=== PATIENT | female | born 1990 | race Caucasian/White ===

== ENCOUNTER 2018-10-01 14:49 | Inpatient (IN) | payer BC, OTHER ==
[~2018-10-01] VITALS: Ht 177.8 cm; Wt 80.0 kg
[2018-10-01] MEDS: LACTATED RINGERS 1,000 ML IV SCH (02:24)
[~2018-10-01 14:49] MED LIST: INDO75CA3 PO; MAGN400T7 PO; SULF1TAB24 PO; SUMA50TA4 PO; VITA1CAP PO
[2018-10-01] MEDS ORDERED: D5%-LACTATED RINGERS 1,000 ML IV SCH (14:56)
[2018-10-01] MEDS ORDERED: OXYTOCIN 30U/ 0.9% NaCL 500ML 500 ML IV ONE ×2 (14:56→22:16)
[2018-10-01] MEDS ORDERED: OXYTOCIN 30U/ 0.9% NaCL 500ML 500 ML IV PRN ×2 (14:56→22:16)
[2018-10-01] MEDS ORDERED: MISOPROSTOL 200 MCG TABLET PR PRN ×2 (15:00→22:30)
[2018-10-01] MEDS ORDERED: OXYcodone/APAP 10/325MG TABLET PO PRN ×3 (15:00→22:30)
[2018-10-01] MEDS ORDERED: IBUPROFEN 600 MG TABLET PO PRN ×2 (15:00→22:30)
[2018-10-01] MEDS ORDERED: METOCLOPRAMIDE 5 MG/ML, 2ML IVPush PRN (15:00)
[2018-10-01] MEDS ORDERED: RHOGAM FROM BLOOD BANK 1 NOTE EA IM/IV PRN ×2 (15:00→22:30)
[2018-10-01] MEDS ORDERED: OXYcodone/APAP 5/325MG TABLET PO PRN ×2 (15:00→22:30)
[2018-10-01] MEDS ORDERED: FENTANYL PF 100 MCG/2ML IVPush PRN (15:00)
[2018-10-01] MEDS ORDERED: SODIUM CHLORIDE FLUSH 10ML SYR IVF PRN (15:00)
[2018-10-01] MEDS ORDERED: SODIUM CITRATE/CITRIC ACID 30 ML UDC PO PRN ×2 (15:00→22:30)
[2018-10-01] MEDS ORDERED: morphine SULFATE 10 MG/ML, 1ML IVPush PRN (15:00)
[2018-10-01] MEDS ORDERED: ONDANSETRON 2MG/ML, 2ML IVPush PRN ×2 (15:00→22:30)
[2018-10-01 15:11] VITALS: BP 120/71
[2018-10-01 15:29] LABS: BASOPHILS # (AUTO) 0.03 x10^3/uL (0-0.1); BASOPHILS % (AUTO) 0 % (0-1); EOSINOPHILS # (AUTO) 0.06 x10^3/uL (0-0.4); EOSINOPHILS % (AUTO) 1 % (1-7); LYMPHOCYTES # (AUTO) 1.22 x10^3/uL (1-3.4); LYMPHOCYTES % (AUTO) 13 % (22-44); MD NO; MEAN CORPUSCULAR HEMOGLOBIN 26.2 pg (27.0-34.8); MEAN CORPUSCULAR VOLUME 79.3 fL (80-100); MEAN PLATELET VOLUME 12.1 fL (7.4-10.4); MONOCYTES # (AUTO) 0.56 x10^3/uL (0.2-0.8); MONOCYTES % (AUTO) 6 % (2-9); NEUTROPHILS # (AUTO) 7.18 x10^3/uL (1.8-6.8); NEUTROPHILS % (AUTO) 79 % (42-75); PLATELET COUNT 146 x10^3/uL (130-400); RED CELL DISTRIBUTION WIDTH 15.5 % (9.6-15.2)
[2018-10-01] MEDS ORDERED: PLEASE ENTER HEIGHT AND WEIGHT MC SCH (15:30)
[2018-10-01] MEDS ORDERED: MISOPROSTOL 200 MCG TABLET ONE ×3 (15:44→23:07)
[2018-10-01] MEDS ORDERED: OXYTOCIN 30U/ 0.9% NaCL 500ML 500 ML ONE (15:44)
[2018-10-01] MEDS: MISOPROSTOL 200 MCG TABLET VG SCH ×2 (18:50→23:16)
[2018-10-01] MEDS ORDERED: ALUMINUM/MAG/SIMETHICONE 30 ML UDC PO PRN (22:30)
[2018-10-01] MEDS ORDERED: ZOLPIDEM 10MG TABLET PO PRN (22:30)
[2018-10-01] MEDS ORDERED: ACETAMINOPHEN 325 MG TABLET PO PRN ×2 (22:30)
[2018-10-01] MEDS ORDERED: CALCIUM CARBONATE 500 MG TAB.CHEW PO PRN (22:30)
[2018-10-01 23:22] LABS: BASOPHILS # (AUTO) 0.03 x10^3/uL (0-0.1); BASOPHILS % (AUTO) 0 % (0-1); EOSINOPHILS # (AUTO) 0.12 x10^3/uL (0-0.4); EOSINOPHILS % (AUTO) 1 % (1-7); LYMPHOCYTES # (AUTO) 1.97 x10^3/uL (1-3.4); LYMPHOCYTES % (AUTO) 20 % (22-44); MD NO; MEAN CORPUSCULAR HEMOGLOBIN 26.6 pg (27.0-34.8); MEAN CORPUSCULAR HGB CONC 33.3 g/dL (32.4-35.8); MEAN PLATELET VOLUME 11.7 fL (7.4-10.4); MONOCYTES % (AUTO) 5 % (2-9); NEUTROPHILS # (AUTO) 7.09 x10^3/uL (1.8-6.8); NEUTROPHILS % (AUTO) 73 % (42-75); PLATELET COUNT 147 x10^3/uL (130-400); RED BLOOD COUNT 4.85 x10^6/uL (3.82-5.3); RED CELL DISTRIBUTION WIDTH 15.5 % (9.6-15.2)
[2018-10-01 23:54] LABS: HEMOGLOBIN A1C 5.2 % (4.2-6.3)
[2018-10-02 00:01] LABS: AMPHETAMINE SCREEN, URINE Negative (Negative); BARBITURATE SCREEN, URINE Negative (Negative); BENZODIAZEPINE SCREEN, URINE Negative (Negative); CANNABINOID SCREEN, URINE Negative (Negative); COCAINE SCREEN, URINE Negative (Negative); METHADONE SCREEN, URINE Negative (Negative); OPIATE SCREEN, URINE Negative (Negative)
[2018-10-02] MEDS ORDERED: FENTANYL PF 100 MCG/2ML ONE (02:21)
[2018-10-02] MEDS ORDERED: MISOPROSTOL 200 MCG TABLET VG SCH (03:00)
[2018-10-02] MEDS ORDERED: FENTANYL/BUPIV./NS/PF 250 ML EPIDCONT SCH (03:02)
[2018-10-02] MEDS: LACTATED RINGERS 1,000 ML IV SCH ×2 (03:45→07:16)
[2018-10-02] MEDS ORDERED: BUPIVACAINE 0.25% ONE (03:52)
[2018-10-02] MEDS ORDERED: MISOPROSTOL 200 MCG TABLET ONE (05:39)
[2018-10-02] MEDS: MISOPROSTOL 200 MCG TABLET PO SCH ×2 (05:50→05:57)
== END 2018-10-02 13:27 | disposition home or self-care (01) | DRG 779 ==
LOC: LDIP 14:49
PROVIDERS: ADMIT Obstetrics & Gynecology; ATTEND Obstetrics & Gynecology
PROC: 10E0XZZ Delivery of Products of Conception, External Approach (ICD-10-PCS; principal; 2018-10-02)
PROC: 3E0R3BZ Introduction of Anesthetic Agent into Spinal Canal, Percutaneous Approach (ICD-10-PCS; 2018-10-02)
PROC: 00HU33Z Insertion of Infusion Device into Spinal Canal, Percutaneous Approach (ICD-10-PCS; 2018-10-02)
PROC: 3E033VJ Introduction of Other Hormone into Peripheral Vein, Percutaneous Approach (ICD-10-PCS; 2018-10-02)
DX: O02.1 Missed abortion (principal); Z82.49 Family history of ischemic heart disease and other diseases of the circulatory system; Z82.3 Family history of stroke; Z80.41 Family history of malignant neoplasm of ovary; Z3A.17 17 weeks gestation of pregnancy; O43.192 Other malformation of placenta, second trimester; O69.1XX0 Labor and delivery complicated by cord around neck, with compression, not applicable or unspecified
CPT/HCPCS: 36415; 85610; 85613; 85670; 85730; 85732; 86146; 86147; J2790; 80074; 80307; 81241; 83036; 84443; 85025; 85300; 85301; 85460; 85598; 86592; 86644; 86645; 86694; 86695; 86696; 86747; 86762; 86777; 86778; 86850; 86900; 87040; 87070; 87075; 87147; 87205; 87252; 88300; 88305; G0378; J3010; J3490; J7120

== ENCOUNTER 2019-10-06 09:53 | Outpatient (CLI) | payer OTHER ==
[~2019-10-06] VITALS: Ht 177.8 cm; Wt 86.8 kg
[~2019-10-06 09:53] MED LIST changes: -MAGN400T7 PO; +MAGN400T9 PO
[2019-10-06 10:28] VITALS: BP 112/71
[2019-10-06 11:11] LABS: MICROSCOPIC INDICATED
[2019-10-06] MEDS ORDERED: PREN1TAB10 PO (11:55)
[2019-10-06] MEDS ORDERED: LACTATED RINGERS 1,000 ML IV SCH (21:06)
[2019-10-06] MEDS ORDERED: PROMETHAZINE 25 MG/ML, 1ML IM ONE (21:30)
[2019-10-06] MEDS ORDERED: MEPERIDINE/PF 50 MG/ML IM PRN (21:30)
== END 2019-10-06 12:17 | disposition home or self-care (01) ==
LOC: LDOP 09:53
PROVIDERS: ATTEND Obstetrics & Gynecology
DX: H04.129 Dry eye syndrome of unspecified lacrimal gland (principal); M25.50 Pain in unspecified joint; E03.9 Hypothyroidism, unspecified; R76.0 Raised antibody titer; E55.9 Vitamin D deficiency, unspecified
CPT/HCPCS: 81001; 87086; 99211; G0463

== ENCOUNTER 2019-10-06 12:21 | Emergency (ER) | payer OTHER ==
[~2019-10-06] VITALS: Ht 177.8 cm; Wt 87.8 kg
[~2019-10-06 12:21] MED LIST changes: +PREN1TAB10 PO
[2019-10-06 12:46] VITALS: BP 111/66
[2019-10-06] MEDS ORDERED: BUPIVACAINE 0.25% ONE (14:23)
== END 2019-10-06 15:01 | disposition home or self-care (01) ==
LOC: ED 14:59
DX: O26.892 Other specified pregnancy related conditions, second trimester (principal); S29.012A Strain of muscle and tendon of back wall of thorax, initial encounter; G43.909 Migraine, unspecified, not intractable, without status migrainosus; Z3A.25 25 weeks gestation of pregnancy; X58.XXXA Exposure to other specified factors, initial encounter; Y93.89 Activity, other specified; Y92.89 Other specified places as the place of occurrence of the external cause; Y99.8 Other external cause status
CPT/HCPCS: 71046; 99283

== ENCOUNTER 2020-01-05 06:20 | Inpatient (IN) | payer OTHER ==
[~2020-01-05] VITALS: Ht 177.8 cm; Wt 90.0 kg
[2020-01-05 06:30] VITALS: BP 107/68
[2020-01-05] MEDS: D5%-LACTATED RINGERS 1,000 ML IV SCH ×3 (07:05→23:05)
[2020-01-05] MEDS ORDERED: OXYTOCIN 30U/ 0.9% NaCL 500ML 500 ML IV ONE (07:05)
[2020-01-05] MEDS ORDERED: LIDOCAINE 1%, 20ML ONE (07:29)
[2020-01-05] MEDS ORDERED: FENTANYL PF 100 MCG/2ML IVPush PRN (07:30)
[2020-01-05] MEDS ORDERED: PLEASE ENTER HEIGHT AND WEIGHT MC SCH (07:30)
[2020-01-05] MEDS ORDERED: OXYTOCIN 30U/ 0.9% NaCL 500ML 500 ML ONE (07:30)
[2020-01-05] MEDS ORDERED: FENTANYL PF 100 MCG/2ML IV PRN (07:30)
[2020-01-05] MEDS ORDERED: TERBUTALINE 1 MG/ML, 1ML SQ PRN (07:30)
[2020-01-05] MEDS ORDERED: ONDANSETRON 2MG/ML, 2ML IVPush PRN (07:30)
[2020-01-05] MEDS ORDERED: SODIUM CITRATE/CITRIC ACID 30 ML UDC PO PRN (07:30)
[2020-01-05] MEDS ORDERED: CALCIUM CARBONATE 500 MG TAB.CHEW PO PRN ×2 (07:30→15:30)
[2020-01-05] MEDS ORDERED: TERBUTALINE 1 MG/ML, 1ML IVPush PRN (07:30)
[2020-01-05] MEDS ORDERED: MISOPROSTOL 200 MCG TABLET ONE (07:30)
[2020-01-05] MEDS: OXYTOCIN 30U/ 0.9% NaCL 500ML 500 ML IV PRN ×2 (07:57→08:07)
[2020-01-05] MEDS: LACTATED RINGERS 1,000 ML IV SCH ×3 (07:58→23:15)
[2020-01-05 07:59] LABS: MEAN CORPUSCULAR HEMOGLOBIN 23.4 pg (27.0-34.8); MEAN CORPUSCULAR HGB CONC 32.3 g/dL (32.4-35.8); MEAN CORPUSCULAR VOLUME 72.6 fL (80-100); RED BLOOD COUNT 4.43 x10^6/uL (3.82-5.3); RED CELL DISTRIBUTION WIDTH 20.2 % (9.6-15.2)
[2020-01-05 08:01] LABS: BASOPHILS # (AUTO) 0.02 x10^3/uL (0-0.1); BASOPHILS % (AUTO) 0 % (0-1); EOSINOPHILS # (AUTO) 0.04 x10^3/uL (0-0.4); EOSINOPHILS % (AUTO) 1 % (1-7); LYMPHOCYTES # (AUTO) 1.16 x10^3/uL (1-3.4); LYMPHOCYTES % (AUTO) 16 % (22-44); MD MORPH REVIEW ONLY; MONOCYTES % (AUTO) 7 % (2-9); NEUTROPHILS # (AUTO) 5.66 x10^3/uL (1.8-6.8); NEUTROPHILS % (AUTO) 77 % (42-75)
[2020-01-05 08:08] LABS: MEAN PLATELET VOLUME 12.9 fL (7.4-10.4); PLATELET COUNT 125 x10^3/uL (130-400)
[2020-01-05 08:09] LABS: <PLATELET ESTIMATE> DECREASED; ANISOCYTOSIS 1+; LARGE PLATELETS 2+; MICROCYTOSIS 2+
[2020-01-05] MEDS ORDERED: MISOPROSTOL 25 MCG TABLET ONE (08:26)
[2020-01-05] MEDS ORDERED: MISOPROSTOL 25 MCG TABLET PO PRN (08:30)
[2020-01-05] MEDS ORDERED: FENTANYL/BUPIV./NS/PF 250 ML EPIDCONT SCH (12:39)
[2020-01-05] MEDS ORDERED: FENTANYL PF 500 MCG, BUPIVACAINE/PF 0.5%, 30ML 62.5 ML in SODIUM CHLORIDE 0.9% 177.5 ML EPIDCONT SCH (13:00)
[2020-01-05] MEDS ORDERED: FENTANYL PF 100 MCG/2ML ONE (14:17)
[2020-01-05] MEDS ORDERED: OXYTOCIN 30U/ 0.9% NaCL 500ML 500 ML IV SCH ×2 (15:06)
[2020-01-05] MEDS ORDERED: DOCUSATE 100 MG CAPSULE PO PRN (15:30)
[2020-01-05] MEDS ORDERED: BISACODYL 10 MG SUPP PR PRN (15:30)
[2020-01-05] MEDS ORDERED: MISOPROSTOL 200 MCG TABLET PR PRN (15:30)
[2020-01-05] MEDS ORDERED: IBUPROFEN 600 MG TABLET PO PRN (15:30)
[2020-01-05] MEDS ORDERED: ONDANSETRON 2MG/ML, 2ML IV PRN (15:30)
[2020-01-05] MEDS ORDERED: HYDROcodone/APAP 5/325 TABLET PO PRN ×2 (15:30)
[2020-01-05] MEDS ORDERED: SIMETHICONE 80 MG CHEW TAB PO PRN (15:30)
[2020-01-05] MEDS ORDERED: ACETAMINOPHEN 325 MG TABLET PO PRN ×2 (15:30)
[2020-01-05 19:16] VITALS: BP 102/55
[2020-01-05] MEDS ORDERED: ENOXAPARIN 40 MG/0.4 ML SQ SCH (21:30)
[2020-01-06] MEDS ORDERED: OXYTOCIN 30U/ 0.9% NaCL 500ML 500 ML IV PRN (02:23)
[2020-01-06] MEDS: LACTATED RINGERS 1,000 ML IV SCH ×5 (07:11→17:09)
[2020-01-06 07:33] VITALS: BP 93/56
[2020-01-06] MEDS ORDERED: TERBUTALINE 1 MG/ML, 1ML ONE ×2 (08:35→16:54)
[2020-01-06] MEDS ORDERED: PRENATAL VIT/IRON/FA 1 EACH TABLET PO SCH (09:00)
[2020-01-06] MEDS ORDERED: FENTANYL PF 100 MCG/2ML ONE (09:18)
[2020-01-06] MEDS ORDERED: BUPIVACAINE 0.25% ONE (09:19)
[2020-01-06] MEDS ORDERED: LIDOCAINE/PF 1.5-EPI 1:200K, 30 ML ONE (12:04)
[2020-01-06] MEDS ORDERED: EPHEDRINE 50 MG/ML, 1ML ONE (12:04)
[2020-01-06] MEDS ORDERED: ONDANSETRON 2MG/ML, 2ML ONE (15:04)
[2020-01-06] MEDS: D5%-LACTATED RINGERS 1,000 ML IV SCH ×3 (15:05→23:05)
[2020-01-06] MEDS ORDERED: ONDANSETRON 2MG/ML, 2ML IVPush PRN (15:30)
[2020-01-06] MEDS ORDERED: SODIUM CITRATE/CITRIC ACID 30 ML UDC ONE (16:54)
[2020-01-06] MEDS ORDERED: METOCLOPRAMIDE 5 MG/ML, 2ML ONE (16:54)
[2020-01-06] MEDS ORDERED: METOCLOPRAMIDE 5 MG/ML, 2ML IVPush PRN (19:30)
[2020-01-06] MEDS ORDERED: OXYTOCIN 30U/ 0.9% NaCL 500ML 500 ML ONE (23:52)
[2020-01-06] MEDS ORDERED: IBUPROFEN 600 MG TABLET ONE (23:52)
[2020-01-07] MEDS: IBUPROFEN 600 MG TABLET PO PRN ×4 (00:30→18:43)
[2020-01-07] MEDS: OXYTOCIN 30U/ 0.9% NaCL 500ML 500 ML IV SCH ×2 (00:43→10:43)
[2020-01-07] MEDS ORDERED: CALCIUM CARBONATE 500 MG TAB.CHEW PO PRN (01:00)
[2020-01-07] MEDS ORDERED: OXYcodone/APAP 5/325MG TABLET PO PRN (01:00)
[2020-01-07] MEDS ORDERED: SIMETHICONE 80 MG CHEW TAB PO PRN (01:00)
[2020-01-07] MEDS ORDERED: MISOPROSTOL 200 MCG TABLET PR PRN (01:00)
[2020-01-07] MEDS ORDERED: ACETAMINOPHEN 325 MG TABLET PO PRN (01:00)
[2020-01-07] MEDS ORDERED: ONDANSETRON 2MG/ML, 2ML IV PRN (01:00)
[2020-01-07 01:41] VITALS: BP 92/56
[2020-01-07 05:44] VITALS: BP 93/58
[2020-01-07 07:30] VITALS: BP 99/61
[2020-01-07 07:37] LABS: BASOPHILS # (AUTO) 0.03 x10^3/uL (0-0.1); BASOPHILS % (AUTO) 0 % (0-1); EOSINOPHILS # (AUTO) 0.02 x10^3/uL (0-0.4); EOSINOPHILS % (AUTO) 0 % (1-7); LYMPHOCYTES # (AUTO) 0.97 x10^3/uL (1-3.4); LYMPHOCYTES % (AUTO) 8 % (22-44); MD MORPH REVIEW ONLY; MEAN CORPUSCULAR HEMOGLOBIN 22.9 pg (27.0-34.8); MEAN CORPUSCULAR HGB CONC 31.1 g/dL (32.4-35.8); MEAN CORPUSCULAR VOLUME 73.5 fL (80-100); MEAN PLATELET VOLUME 13.6 fL (7.4-10.4); MONOCYTES % (AUTO) 7 % (2-9); NEUTROPHILS # (AUTO) 9.89 x10^3/uL (1.8-6.8); NEUTROPHILS % (AUTO) 84 % (42-75); PLATELET COUNT 109 x10^3/uL (130-400); RED CELL DISTRIBUTION WIDTH 20.2 % (9.6-15.2)
[2020-01-07 07:38] LABS: ANISOCYTOSIS 1+; HYPOCHROMIA 1+; MICROCYTOSIS 1+; OVALOCYTES 1+; POLYCHROMASIA 1+
[2020-01-07 07:39] LABS: <PLATELET ESTIMATE> DECREASED; LARGE PLATELETS 2+; TEAR DROPS 1+
[2020-01-07] MEDS: DOCUSATE 100 MG CAPSULE PO PRN (07:39)
[2020-01-07] MEDS: OXYcodone/APAP 5/325MG TABLET PO PRN ×2 (07:40→13:07)
[2020-01-07] MEDS: PRENATAL VIT/IRON/FA 1 EACH TABLET PO SCH (07:40)
[2020-01-07] MEDS: FERROUS GLUCONATE 324 MG TABLET PO SCH ×3 (10:11→18:02)
[2020-01-07] MEDS ORDERED: RHOGAM FROM BLOOD BANK 1 NOTE EA IM/IV ONE (10:30)
[2020-01-07 12:55] VITALS: BP 97/59
[2020-01-07 16:40] VITALS: BP 98/62
[2020-01-07 19:58] VITALS: BP 96/56
[2020-01-08] MEDS: OXYcodone/APAP 5/325MG TABLET PO PRN (06:22)
[2020-01-08] MEDS: IBUPROFEN 600 MG TABLET PO PRN (06:22)
[2020-01-08 07:40] VITALS: BP 99/62
[2020-01-08] MEDS: FERROUS GLUCONATE 324 MG TABLET PO SCH (07:40)
[2020-01-08] MEDS: PRENATAL VIT/IRON/FA 1 EACH TABLET PO SCH (07:40)
[2020-01-08] MEDS: DOCUSATE 100 MG CAPSULE PO PRN (07:41)
[2020-01-08] MEDS ORDERED: DOCU-131 PO (08:14)
[2020-01-08] MEDS ORDERED: IBUP-1222 PO (08:14)
== END 2020-01-08 13:00 | disposition home or self-care (01) | DRG 806 ==
LOC: LDIP 06:20 → 2NW 01-07 01:12
PROVIDERS: ADMIT Obstetrics & Gynecology; ATTEND Obstetrics & Gynecology
PROC: 10D07Z6 Extraction of Products of Conception, Vacuum, Via Natural or Artificial Opening (ICD-10-PCS; principal; 2020-01-07)
PROC: 3E033VJ Introduction of Other Hormone into Peripheral Vein, Percutaneous Approach (ICD-10-PCS; 2020-01-07)
PROC: 10907ZC Drainage of Amniotic Fluid, Therapeutic from Products of Conception, Via Natural or Artificial Opening (ICD-10-PCS; 2020-01-07)
PROC: 10H07YZ Insertion of Other Device into Products of Conception, Via Natural or Artificial Opening (ICD-10-PCS; 2020-01-07)
DX: O24.420 Gestational diabetes mellitus in childbirth, diet controlled (principal); D62 Acute posthemorrhagic anemia; Z37.0 Single live birth; O62.1 Secondary uterine inertia; O70.1 Second degree perineal laceration during delivery; O71.82 Other specified trauma to perineum and vulva; O77.0 Labor and delivery complicated by meconium in amniotic fluid; O99.02 Anemia complicating childbirth; Z3A.39 39 weeks gestation of pregnancy
CPT/HCPCS: 36415; J7121; S0020; 82803; 82962; 85025; 85461; 86592; 86850; 86900; 86923; G0378; J2405; J2790; J3010; J3490; J2590; J2765; J3105; J7050; J7120; U0001-CS

== ENCOUNTER 2020-01-09 04:43 | Emergency (ER) | payer OTHER ==
[~2020-01-09] VITALS: Ht 177.8 cm; Wt 89.0 kg
[~2020-01-09 04:43] MED LIST changes: +DOCU-131 PO; +IBUP-1222 PO
--- NOTE | 2020-01-09 05:11 | NUR ---
PATIENT REQUESTING WITCH DARRELL PADS, AND DERMAFLAST. CALLED POST- REGARDING SUPPLIES, WILL SEND SUPPLIES VIA TUBE STATION.
[2020-01-09] MEDS ORDERED: SODIUM CHLORIDE FLUSH 10ML SYR IVF ONE (05:30)
[2020-01-09 06:00] VITALS: BP 126/77
--- NOTE | 2020-01-09 06:10 | NUR ---
IN AND OUT CATH PERFORMED. PATIENT TOLERATED WELL. URINE SENT TO LAB. PATIENT UPDATED ON PLAN OF CARE. NO NOTED ACUTE DISTRESS AT THIS TIME. AT BEDSIDE. WILL CONTINUE TO MONITOR.
--- NOTE | 2020-01-09 06:11 | NUR ---
LAB AT BEDSIDE DRAWING LABS.
[2020-01-09 06:25] LABS: MICROSCOPIC AUTO
[2020-01-09 06:40] LABS: ALBUMIN 2.1 g/dL (3.4-5.0); ANION GAP 7 mmol/L (5-15); CALCIUM 7.9 mg/dL (8.5-10.1); CHLORIDE 111 mmol/L (98-107)
[2020-01-09 06:46] LABS: ALANINE AMINOTRANSFERASE 13 U/L (12-78); ALKALINE PHOSPHATASE 75 U/L (45-117); BILIRUBIN,TOTAL 0.2 mg/dL (0.2-1.0); CREATININE 0.57 mg/dL (0.55-1.02); TOTAL PROTEIN 5.7 g/dL (6.4-8.2)
[2020-01-09 06:50] LABS: BASOPHILS # (AUTO) 0.02 x10^3/uL (0-0.1); BASOPHILS % (AUTO) 0 % (0-1); EOSINOPHILS # (AUTO) 0.11 x10^3/uL (0-0.4); EOSINOPHILS % (AUTO) 1 % (1-7); LYMPHOCYTES # (AUTO) 1.23 x10^3/uL (1-3.4); LYMPHOCYTES % (AUTO) 15 % (22-44); MD SCAN; MEAN CORPUSCULAR HEMOGLOBIN 23.4 pg (27.0-34.8); MEAN CORPUSCULAR VOLUME 73.1 fL (80-100); MEAN PLATELET VOLUME 12.9 fL (7.4-10.4); MONOCYTES # (AUTO) 0.46 x10^3/uL (0.2-0.8); MONOCYTES % (AUTO) 6 % (2-9); NEUTROPHILS # (AUTO) 6.42 x10^3/uL (1.8-6.8); NEUTROPHILS % (AUTO) 78 % (42-75); PLATELET COUNT 116 x10^3/uL (130-400); RED CELL DISTRIBUTION WIDTH 20.6 % (9.6-15.2)
--- NOTE | 2020-01-09 06:50 | NUR ---
REPORT GIVEN TO ONCOMING ROYCE ANDRES
--- NOTE | 2020-01-09 07:00 | NUR ---
ASSUMED CARE. PT AWAITING TEST RESULTS.
--- NOTE | 2020-01-09 07:25 | NUR ---
AFTER MD RE-EVAL PT GIVEN DISCHARGE INSTRUCTIONS. AMBULATED TO DISCHARGE WINDOW, STEADY GAIT
== END 2020-01-09 07:27 | disposition home or self-care (01) ==
LOC: ED 05:13
DX: N30.00 Acute cystitis without hematuria (principal); R60.0 Localized edema; D64.9 Anemia, unspecified; G43.909 Migraine, unspecified, not intractable, without status migrainosus
CPT/HCPCS: 36415; 80053; 81001; 83880; 85025; 87077; 87086; 87186; 93005; 93970; 99285

== ENCOUNTER 2020-11-06 22:46 | Emergency (ER) | payer OTHER ==
[~2020-11-06] VITALS: Ht 177.8 cm; Wt 96.2 kg
[2020-11-06 22:49] VITALS: BP 110/63
[2020-11-06] MEDS ORDERED: ERYTHROMYCIN OPHTH 0.5%, 1GM LEFTEYE ONE (23:30)
== END 2020-11-06 23:38 | disposition home or self-care (01) ==
LOC: ED 23:20
DX: H00.015 Hordeolum externum left lower eyelid (principal)
CPT/HCPCS: 99283